=== PATIENT | male | born 1960 | race Two or more races ===

== ENCOUNTER 2025-06-15 21:28 | Inpatient (IN) | payer MEDICARE ==
[~2025-06-15] VITALS: Ht 177.8 cm; Wt 47.6 kg
[~2025-06-15 21:28] MED LIST: CHLO25CA10 PO; CITA10TA16 MT; FOLI-43 MT; MECL-217 PO; MULT-1146 MT; QUET25TA PO; THIA100T88 MT; VIT1TABL77 MT
[2025-06-15 21:33] VITALS: O2SAT 97
[2025-06-15] MEDS ORDERED: LIDOCAINE HCL/EPINEPHRINE 1%-EPI 1:100,000 10ML VIAL INFIL ONE (22:45)
[2025-06-15 23:24] LABS: CREATININE 0.6 mg/dL (0.6-1.3); UREA NITROGEN BLOOD 5 mg/dL (9-23)
[2025-06-15 23:47] LABS: BASOPHILS % 1.0 % (0.0-2.0); EOSINOPHILS % 1.9 % (0.0-5.0); HEMATOCRIT. 35.6 % (42.0-52.0); HEMOGLOBIN. 12.1 g/dL (14.0-18.0); LYMPHOCYTES % 47.5 % (20.0-50.0); MEAN PLATELET VOLUME 8.3 fl (7.4-10.4); MONOCYTES % 10.8 % (2.0-8.0); NEUTROPHILS % 38.8 % (40.0-76.0); PLATELET 213 x1000/uL (130-400); RED BLOOD CELL COUNT 3.27 mill/uL (4.7-6.1); RED CELL DISTRIBUTION WIDTH 17.6 % (11.6-14.6)
[2025-06-15] MEDS: LIDOCAINE HCL/EPINEPHRINE 1%-EPI 1:100,000 20ML VIAL INFIL NR (23:57)
[2025-06-16] MEDS: POTASSIUM CHLORIDE 20MEQ/PACKET PO ONE (01:53)
[2025-06-16 02:20] VITALS: BP 129/83; PULSE 89; RESP 16; TEMP 36.8072
[2025-06-16 08:00] VITALS: BP 134/74; PULSE 79; RESP 18; TEMP 37.2; O2SAT 100
[2025-06-16] MEDS ORDERED: ONDANSETRON HCL 4MG/2ML INJ IV PRN (08:00)
[2025-06-16] MEDS ORDERED: HYDROCODONE/ACETAMINOPHEN 5/325MG TABLET PO PRN (08:00)
[2025-06-16] MEDS ORDERED: MAGNESIUM/ALUMINUM HYDROXIDE/SIMETHICONE 30ML UDC PO PRN (08:00)
[2025-06-16] MEDS ORDERED: ENOXAPARIN 40MG/0.4ML SYR SUBCUT SCH (08:00)
[2025-06-16] MEDS: PANTOPRAZOLE SODIUM 40 MG/VIAL IV SCH (09:29)
[2025-06-16] MEDS: ENOXAPARIN 30MG/0.3ML SYR SUBCUT SCH (09:29)
[2025-06-16] MEDS: SODIUM CHLORIDE 0.9% 1,000 ML IV SCH (09:30)
[2025-06-16] MEDS: MVI, ADULT NO.1 10 ML, FOLIC ACID 1 MG, THIAMINE HCL 100 MG in SODIUM CHLORIDE 0.9% 1,0... IV SCH (10:35)
[2025-06-16 12:00] VITALS: BP 122/74; PULSE 99; RESP 18; TEMP 36.7; O2SAT 100
[2025-06-16] MEDS ORDERED: NALOXONE HCL 0.4MG/ML VIAL IV PRN (14:15)
[2025-06-16] MEDS: CHLORDIAZEPOXIDE 25MG CAPSULE PO SCH (15:21)
[2025-06-16 16:00] VITALS: BP 127/70; PULSE 75; RESP 18; TEMP 36.6; O2SAT 97
[2025-06-16 20:00] VITALS: BP 129/70; PULSE 75; RESP 18; TEMP 36.4; O2SAT 100
[2025-06-17] VITALS: BP 108/65; PULSE 79; RESP 18; TEMP 36.4; O2SAT 100
[2025-06-17 04:00] VITALS: BP 137/85; PULSE 70; RESP 18; TEMP 36.4; O2SAT 100
[2025-06-17 07:20] LABS: BASOPHILS % 0.4 % (0.0-2.0); EOSINOPHILS % 1.6 % (0.0-5.0); HEMATOCRIT. 37.8 % (42.0-52.0); HEMOGLOBIN. 12.9 g/dL (14.0-18.0); LYMPHOCYTES % 37.3 % (20.0-50.0); MEAN PLATELET VOLUME 9.1 fl (7.4-10.4); MONOCYTES % 8.3 % (2.0-8.0); NEUTROPHILS % 52.4 % (40.0-76.0); PLATELET 166 x1000/uL (130-400); RED BLOOD CELL COUNT 3.46 mill/uL (4.7-6.1); RED CELL DISTRIBUTION WIDTH 16.7 % (11.6-14.6)
[2025-06-17 07:36] LABS: CREATININE 0.5 mg/dL (0.6-1.3)
[2025-06-17 07:37] LABS: UREA NITROGEN BLOOD < 5 mg/dL (9-23)
[2025-06-17 07:38] LABS: ASPARTATE AMINOTRANSFERASE 46 IU/L (<34)
[2025-06-17 07:39] LABS: BILIRUBIN TOTAL 1.5 mg/dL (0.1-1.0); PHOSPHORUS 1.7 mg/dL (2.5-4.9); PROTEIN TOTAL 6.3 g/dL (6.0-8.3)
[2025-06-17 08:00] VITALS: BP 136/80; PULSE 67; RESP 18; TEMP 36.4; O2SAT 98
[2025-06-17] MEDS: POTASSIUM CHLORIDE 20MEQ TABLET SR PO SCH (10:09)
[2025-06-17] MEDS: KCL 10MEQ/50ML PREMIX 50 ML IV SCH (10:09)
[2025-06-17 12:00] VITALS: BP 139/79; PULSE 65; RESP 17; TEMP 36.4; O2SAT 98
[2025-06-17] MEDS: MAGNESIUM 2 G PREMIX 50 ML IV SCH (12:22)
[2025-06-17 16:00] VITALS: BP 13/76; PULSE 68; RESP 18; TEMP 36.4; O2SAT 98
[2025-06-18] VITALS: BP 148/92; PULSE 109; RESP 20; TEMP 36.7; O2SAT 97
[2025-06-18 04:00] VITALS: BP 134/92; PULSE 99; RESP 19; TEMP 36.3; O2SAT 96
[2025-06-18 08:00] VITALS: BP 153/90; PULSE 72; RESP 17; TEMP 36.6; O2SAT 100
[2025-06-18] MEDS: FAMOTIDINE 20MG/2ML VIAL IV SCH (09:00)
[2025-06-18 09:56] LABS: BASOPHILS % 0.3 % (0.0-2.0); EOSINOPHILS % 2.5 % (0.0-5.0); HEMATOCRIT. 37.0 % (42.0-52.0); HEMOGLOBIN. 12.4 g/dL (14.0-18.0); LYMPHOCYTES % 29.9 % (20.0-50.0); MEAN PLATELET VOLUME 9.4 fl (7.4-10.4); MONOCYTES % 7.5 % (2.0-8.0); NEUTROPHILS % 59.8 % (40.0-76.0); PLATELET 159 x1000/uL (130-400); RED BLOOD CELL COUNT 3.33 mill/uL (4.7-6.1); RED CELL DISTRIBUTION WIDTH 17.0 % (11.6-14.6)
[2025-06-18 10:01] LABS: ADD RBC MORPHOLOGY YES
[2025-06-18 10:07] LABS: CREATININE 0.6 mg/dL (0.6-1.3)
[2025-06-18 10:08] LABS: UREA NITROGEN BLOOD < 5 mg/dL (9-23)
[2025-06-18 10:09] LABS: ASPARTATE AMINOTRANSFERASE 63 IU/L (<34)
[2025-06-18 10:10] LABS: BILIRUBIN TOTAL 1.3 mg/dL (0.1-1.0); PROTEIN TOTAL 6.4 g/dL (6.0-8.3)
[2025-06-18 12:00] VITALS: BP 158/89; PULSE 77; RESP 17; TEMP 36.3; O2SAT 100
[2025-06-18] MEDS: MAGNESIUM 1 G PREMIX 100 ML IV NR (12:28)
[2025-06-18] MEDS: KCL 10MEQ/50ML PREMIX 50 ML IV SCH (13:00)
[2025-06-18 16:00] VITALS: BP 127/83; PULSE 71; RESP 17; TEMP 36.1; O2SAT 99
[2025-06-18 17:01] LABS: PLATELET ESTIMATE NORMAL
[2025-06-18 20:00] VITALS: BP 136/76; PULSE 70; RESP 18; TEMP 36.7; O2SAT 77
[2025-06-18] MEDS: LORAZEPAM 2MG/ML UD SYRINGE IV PRN (22:04)
[2025-06-19 08:00] VITALS: BP 134/80; PULSE 73; RESP 18; TEMP 35.9; O2SAT 95
[2025-06-19 12:00] VITALS: BP 128/75; PULSE 77; RESP 18; TEMP 36.3; O2SAT 98
[2025-06-19 16:00] VITALS: PULSE 65; RESP 18; TEMP 35.7; O2SAT 97
[2025-06-19 18:09] LABS: BASOPHILS % 0.4 % (0.0-2.0); EOSINOPHILS % 4.6 % (0.0-5.0); HEMATOCRIT. 39.1 % (42.0-52.0); HEMOGLOBIN. 12.8 g/dL (14.0-18.0); LYMPHOCYTES % 31.7 % (20.0-50.0); MEAN PLATELET VOLUME 9.5 fl (7.4-10.4); MONOCYTES % 9.0 % (2.0-8.0); NEUTROPHILS % 54.3 % (40.0-76.0); PLATELET 156 x1000/uL (130-400); RED BLOOD CELL COUNT 3.45 mill/uL (4.7-6.1); RED CELL DISTRIBUTION WIDTH 16.8 % (11.6-14.6)
[2025-06-19 18:30] LABS: CREATININE 0.6 mg/dL (0.6-1.3)
[2025-06-19 18:31] LABS: CREATININE 0.6 mg/dL (0.6-1.3); UREA NITROGEN BLOOD 6 mg/dL (9-23)
[2025-06-19 18:32] LABS: ASPARTATE AMINOTRANSFERASE 124 IU/L (<34); UREA NITROGEN BLOOD 6 mg/dL (9-23)
[2025-06-19 18:33] LABS: BILIRUBIN TOTAL 1.2 mg/dL (0.1-1.0); PROTEIN TOTAL 6.6 g/dL (6.0-8.3)
[2025-06-19 20:00] VITALS: BP 133/81; PULSE 80; RESP 18; TEMP 36.7; O2SAT 99
[2025-06-19] MEDS: THIAMINE HCL 100MG TABLET PO SCH (21:13)
[2025-06-19] MEDS: POTASSIUM CHLORIDE 20MEQ TABLET SR PO SCH (21:14)
[2025-06-19] MEDS: FOLIC ACID/VITAMIN B COMP W-C TABLET PO SCH (21:15)
[2025-06-19] MEDS: MAGNESIUM 1 G PREMIX 100 ML IV SCH (21:30)
[2025-06-20] VITALS: BP 128/80; PULSE 77; RESP 18; TEMP 36.9; O2SAT 99
[2025-06-20] MEDS: ZOLPIDEM TARTRATE 5MG TABLET PO PRN (03:31)
[2025-06-20 04:00] VITALS: BP 125/79; PULSE 72; RESP 14; TEMP 36.7; O2SAT 99
[2025-06-20 05:50] LABS: CREATININE 0.6 mg/dL (0.6-1.3); UREA NITROGEN BLOOD 8 mg/dL (9-23)
[2025-06-20] MEDS: NICOTINE 14MG PATCH TD SCH (09:45)
[2025-06-20 12:00] VITALS: BP 132/86; PULSE 87; RESP 17; TEMP 36.3; O2SAT 99
[2025-06-20 12:26] VITALS: BP 147/81; PULSE 103; RESP 18; TEMP 35.8; O2SAT 100
[2025-06-20] MEDS: CHLORDIAZEPOXIDE 25MG CAPSULE PO SCH (14:06)
[2025-06-20 16:00] VITALS: BP 101/63; PULSE 74; RESP 17; TEMP 35.9; O2SAT 98
[2025-06-20 20:00] VITALS: BP 142/92; PULSE 82; RESP 18; TEMP 36.4; O2SAT 100
[2025-06-21] VITALS: BP 144/122; PULSE 82; RESP 18; TEMP 36.4; O2SAT 100
[2025-06-21 04:00] VITALS: BP 159/101; PULSE 83; RESP 18; TEMP 36.4; O2SAT 95
[2025-06-21] MEDS: CLONIDINE 0.1MG TABLET PO PRN (05:21)
[2025-06-21 08:00] VITALS: BP 126/74; PULSE 88; RESP 17; TEMP 36.4; O2SAT 99
[2025-06-21 12:00] VITALS: BP 115/72; PULSE 83; RESP 17; TEMP 36.2; O2SAT 99
[2025-06-21 16:00] VITALS: BP 119/83; PULSE 91; RESP 17; TEMP 36.3; O2SAT 100
[2025-06-21 20:00] VITALS: BP 148/80; PULSE 78; RESP 16; TEMP 36.9; O2SAT 98
[2025-06-22] VITALS: BP 144/79; PULSE 80; RESP 16; TEMP 36.9; O2SAT 98
[2025-06-22 04:00] VITALS: BP 151/86; PULSE 69; RESP 18; TEMP 36.7; O2SAT 98
[2025-06-22 08:00] VITALS: BP 165/85; PULSE 80; RESP 19; TEMP 36.5; O2SAT 95
[2025-06-22] MEDS: CITALOPRAM HYDROBROMIDE 10MG TABLET PO SCH (10:31)
[2025-06-22 12:00] VITALS: BP 128/71; PULSE 66; RESP 16; TEMP 36.3; O2SAT 96
[2025-06-22 16:00] VITALS: BP 123/87; PULSE 70; RESP 17; TEMP 36.4; O2SAT 99
[2025-06-22 20:00] VITALS: BP 123/65; PULSE 69; RESP 19; TEMP 37; O2SAT 96
[2025-06-22] MEDS ORDERED: NALOXONE HCL 0.4MG/ML VIAL IV PRN (20:00)
[2025-06-22] MEDS: QUETIAPINE FUMARATE 25MG TABLET PO SCH (20:24)
[2025-06-22] MEDS: HYDROCODONE/ACETAMINOPHEN 5/325MG TABLET PO PRN (20:25)
[2025-06-23 04:00] VITALS: BP 141/74; PULSE 71; RESP 19; TEMP 36.2; O2SAT 96
[2025-06-23 08:00] VITALS: BP 141/75; PULSE 74; RESP 17; TEMP 35.7; O2SAT 99
[2025-06-23 12:00] VITALS: BP 115/71; PULSE 94; RESP 18; TEMP 36.4; O2SAT 100
[2025-06-23 16:00] VITALS: BP 118/65; PULSE 55; RESP 15; TEMP 35.6; O2SAT 100
[2025-06-23 20:00] VITALS: BP 123/71; PULSE 81; RESP 18; TEMP 36.4; O2SAT 96
[2025-06-24] VITALS: BP 134/87; PULSE 74; RESP 18; TEMP 36.7; O2SAT 97
[2025-06-24 04:00] VITALS: BP 144/75; PULSE 78; RESP 18; TEMP 36.5; O2SAT 100
[2025-06-24 08:00] VITALS: BP 140/79; PULSE 73; RESP 18; TEMP 36.3; O2SAT 100
[2025-06-24 12:00] VITALS: BP 145/77; PULSE 77; RESP 18; TEMP 36.3; O2SAT 100
[2025-06-24 16:00] VITALS: BP 148/81; PULSE 79; RESP 19; TEMP 36.4; O2SAT 98
[2025-06-24] MEDS ORDERED: THIA100T72 PO (16:04)
[2025-06-24 20:00] VITALS: BP 164/71; PULSE 83; RESP 20; TEMP 36.7; O2SAT 96
[2025-06-25] VITALS: BP 176/90; PULSE 99; RESP 17; TEMP 36.3; O2SAT 99
[2025-06-25 08:00] VITALS: BP 175/99; PULSE 89; RESP 18; TEMP 36.4; O2SAT 100
[2025-06-25 12:00] VITALS: BP 163/88; PULSE 94; RESP 18; TEMP 36.6; O2SAT 100
[2025-06-25 16:00] VITALS: BP 149/76; PULSE 88; RESP 20; TEMP 36.8; O2SAT 100
[2025-06-25 20:00] VITALS: BP 162/84; PULSE 72; RESP 20; TEMP 37.2; O2SAT 100
[2025-06-25 20:54] VITALS: BP 125/82
[2025-06-25] MEDS: QUETIAPINE FUMARATE 50MG TABLET PO SCH (20:55)
[2025-06-26] VITALS: BP 154/100; PULSE 98; RESP 20; TEMP 35.9; O2SAT 100
[2025-06-26 04:00] VITALS: BP 171/101; PULSE 114; RESP 20; TEMP 36; O2SAT 97
[2025-06-26 08:00] VITALS: BP 155/107; PULSE 95; RESP 18; TEMP 36.2; O2SAT 99
[2025-06-26 12:00] VITALS: BP 140/84; PULSE 73; RESP 18; TEMP 36.3; O2SAT 100
[2025-06-26 16:00] VITALS: BP 155/74; PULSE 93; RESP 20; TEMP 36.3; O2SAT 98
[2025-06-26 20:00] VITALS: BP 145/85; PULSE 73; RESP 17; TEMP 36.5; O2SAT 100
[2025-06-27] VITALS: BP 157/92; PULSE 105; RESP 16; TEMP 36.3; O2SAT 99
[2025-06-27 04:00] VITALS: BP 157/92; PULSE 86; RESP 17; TEMP 36.4; O2SAT 98
[2025-06-27 08:00] VITALS: BP 147/95; PULSE 73; RESP 20; TEMP 36.2; O2SAT 99
[2025-06-27 12:00] VITALS: BP 115/71; PULSE 86; RESP 20; TEMP 36.3; O2SAT 99
[2025-06-27] MEDS: FOLIC ACID 1 MG, THIAMINE HCL 100 MG, MVI, ADULT NO.1 10 ML in DEXTROSE 5% WATER 1,000 ML IV ONE (13:59)
[2025-06-27] MEDS: CHLORDIAZEPOXIDE 25MG CAPSULE PO SCH (13:59)
[2025-06-27 16:00] VITALS: BP 135/87; PULSE 71; RESP 20; TEMP 36.4; O2SAT 99
[2025-06-27 20:00] VITALS: BP 162/92; PULSE 72; RESP 18; TEMP 36.4; O2SAT 100
[2025-06-28] VITALS: BP 148/85; PULSE 80; RESP 18; TEMP 36.4; O2SAT 100
[2025-06-28 04:00] VITALS: BP 150/89; PULSE 70; RESP 18; TEMP 36.4; O2SAT 100
[2025-06-28 08:00] VITALS: BP 150/82; PULSE 68; RESP 16; TEMP 36.3; O2SAT 100
[2025-06-28 12:00] VITALS: BP 135/71; PULSE 74; RESP 18; TEMP 36.4; O2SAT 100
[2025-06-28 16:00] VITALS: BP 146/85; PULSE 63; RESP 17; TEMP 36.1; O2SAT 100
[2025-06-28 20:00] VITALS: BP 147/86; PULSE 64; RESP 18; TEMP 36; O2SAT 99
[2025-06-29] VITALS: BP 91/59; PULSE 63; RESP 12; TEMP 36.2; O2SAT 100
[2025-06-29 04:00] VITALS: BP 133/88; PULSE 74; RESP 18; TEMP 36.4; O2SAT 98
[2025-06-29] MEDS: CARBIDOPA/LEVODOPA 10/100MG TABLET PO SCH (06:23)
[2025-06-29 08:00] VITALS: BP 105/75; PULSE 80; RESP 20; TEMP 36.6; O2SAT 100
[2025-06-29 08:08] LABS: BASOPHILS % 1.3 % (0.0-2.0); EOSINOPHILS % 1.6 % (0.0-5.0); HEMATOCRIT. 36.9 % (42.0-52.0); HEMOGLOBIN. 12.5 g/dL (14.0-18.0); LYMPHOCYTES % 31.0 % (20.0-50.0); MEAN PLATELET VOLUME 8.5 fl (7.4-10.4); MONOCYTES % 9.8 % (2.0-8.0); NEUTROPHILS % 56.3 % (40.0-76.0); PLATELET 516 x1000/uL (130-400); RED BLOOD CELL COUNT 3.38 mill/uL (4.7-6.1); RED CELL DISTRIBUTION WIDTH 15.8 % (11.6-14.6)
[2025-06-29 08:15] LABS: CREATININE 0.7 mg/dL (0.6-1.3); UREA NITROGEN BLOOD 13 mg/dL (9-23)
[2025-06-29 08:17] LABS: ASPARTATE AMINOTRANSFERASE 78 IU/L (<34); BILIRUBIN DIRECT 0.2 mg/dL (<=3.0); BILIRUBIN TOTAL 0.5 mg/dL (0.1-1.0); PHOSPHORUS 3.7 mg/dL (2.5-4.9); PROTEIN TOTAL 6.8 g/dL (6.0-8.3)
[2025-06-29 12:00] VITALS: BP 106/62; PULSE 68; RESP 16; TEMP 36.2; O2SAT 100
[2025-06-29 16:00] VITALS: BP 119/69; PULSE 68; RESP 18; TEMP 36.3; O2SAT 100
[2025-06-29 20:00] VITALS: BP 122/70; PULSE 73; RESP 18; TEMP 36.6; O2SAT 100
[2025-06-30] VITALS: BP 131/80; PULSE 64; RESP 18; TEMP 36.5; O2SAT 100
[2025-06-30 04:00] VITALS: BP 139/79; PULSE 74; RESP 18; TEMP 36.4; O2SAT 100
[2025-06-30 08:00] VITALS: BP 164/95; PULSE 83; RESP 18; TEMP 36.8; O2SAT 96
[2025-06-30 12:00] VITALS: BP 146/81; PULSE 90; RESP 19; TEMP 37.1; O2SAT 99
[2025-06-30 16:00] VITALS: BP 142/85; PULSE 82; RESP 18; TEMP 35.7; O2SAT 99
[2025-06-30 20:00] VITALS: BP 137/84; PULSE 65; RESP 18; TEMP 36.6; O2SAT 99
[2025-07-01] VITALS: BP 149/78; PULSE 75; RESP 18; TEMP 36.1; O2SAT 100
[2025-07-01 04:00] VITALS: BP 113/44; PULSE 77; RESP 18; TEMP 36.6; O2SAT 98
[2025-07-01 08:00] VITALS: BP 142/73; PULSE 67; RESP 18; TEMP 36.4; O2SAT 98
[2025-07-01 12:00] VITALS: PULSE 75; RESP 18; TEMP 36.6; O2SAT 99
[2025-07-01 16:00] VITALS: BP 127/72; PULSE 78; RESP 18; TEMP 36.2; O2SAT 98
[2025-07-01] MEDS: ACETAMINOPHEN 325MG TABLET PO PRN (16:12)
[2025-07-01 20:00] VITALS: BP 167/47; PULSE 58; RESP 18; TEMP 36.4; O2SAT 97
[2025-07-02] VITALS: BP 126/78; PULSE 70; RESP 18; TEMP 36.4; O2SAT 98
[2025-07-02 06:49] LABS: CREATININE 0.8 mg/dL (0.6-1.3)
[2025-07-02 06:50] LABS: UREA NITROGEN BLOOD 6 mg/dL (9-23)
[2025-07-02 06:51] LABS: ASPARTATE AMINOTRANSFERASE 56 IU/L (<34)
[2025-07-02 06:52] LABS: BILIRUBIN TOTAL 0.5 mg/dL (0.1-1.0); PROTEIN TOTAL 7.2 g/dL (6.0-8.3)
[2025-07-02 08:00] VITALS: BP 156/88; PULSE 68; RESP 16; TEMP 36.2; O2SAT 98
[2025-07-02 12:00] VITALS: BP 136/85; PULSE 62; RESP 19; TEMP 36.4; O2SAT 100
[2025-07-02 16:00] VITALS: BP 140/86; PULSE 90; RESP 20; TEMP 36.5; O2SAT 98
[2025-07-02 17:36] LABS: BASOPHILS % 1.2 % (0.0-2.0); EOSINOPHILS % 2.2 % (0.0-5.0); HEMATOCRIT. 36.5 % (42.0-52.0); HEMOGLOBIN. 12.6 g/dL (14.0-18.0); LYMPHOCYTES % 27.2 % (20.0-50.0); MEAN PLATELET VOLUME 8.2 fl (7.4-10.4); MONOCYTES % 11.0 % (2.0-8.0); NEUTROPHILS % 58.4 % (40.0-76.0); PLATELET 524 x1000/uL (130-400); RED BLOOD CELL COUNT 3.38 mill/uL (4.7-6.1); RED CELL DISTRIBUTION WIDTH 15.3 % (11.6-14.6)
[2025-07-02 20:00] VITALS: BP 124/84; PULSE 79; RESP 19; TEMP 35.9; O2SAT 98
[2025-07-03] VITALS: BP 143/86; PULSE 67; RESP 19; TEMP 35.8; O2SAT 97
[2025-07-03 04:00] VITALS: BP 160/100; PULSE 63; RESP 19; TEMP 36.2; O2SAT 97
[2025-07-03 08:00] VITALS: BP 150/82; PULSE 68; RESP 17; TEMP 35.6; O2SAT 100
[2025-07-03 12:00] VITALS: BP 135/72; PULSE 70; RESP 17; TEMP 36.4; O2SAT 100
[2025-07-03 15:19] VITALS: BP 135/72; PULSE 70; RESP 17; TEMP 97.5
== END 2025-07-03 16:26 | DRG 124 ==
LOC: ER 21:28 → EDBEDREQTM 06-16 01:24 → EDBEDREQ 06-16 01:24 → ENRESERV 06-16 01:52 → 7EST 06-16 03:28
PROVIDERS: ADMIT Internal Medicine; ATTEND Internal Medicine
PROC: 0HQ1XZZ Repair Face Skin, External Approach (ICD-10-PCS; principal; 2025-06-15)
PROC: GZ56ZZZ Individual Psychotherapy, Supportive (ICD-10-PCS; 2025-06-24)
DX: S01.111A Laceration without foreign body of right eyelid and periocular area, initial encounter (principal); G93.41 Metabolic encephalopathy; F10.939 Alcohol use, unspecified with withdrawal, unspecified; I10 Essential (primary) hypertension; M47.892 Other spondylosis, cervical region; W08.XXXA Fall from other furniture, initial encounter; D53.9 Nutritional anemia, unspecified; E87.6 Hypokalemia; F17.210 Nicotine dependence, cigarettes, uncomplicated; F32.A Depression, unspecified; F41.9 Anxiety disorder, unspecified; F20.9 Schizophrenia, unspecified; Y90.8 Blood alcohol level of 240 mg/100 ml or more; F10.929 Alcohol use, unspecified with intoxication, unspecified; Z79.899 Other long term (current) drug therapy; Y93.89 Activity, other specified; Y92.89 Other specified places as the place of occurrence of the external cause; Z86.73 Personal history of transient ischemic attack (TIA), and cerebral infarction without residual deficits; Z88.0 Allergy status to penicillin
CPT/HCPCS: 12013; 36415; 70486; 73521; 80048; 80053; 80076; 80320; 82140; 83735; 84100; 84443; 85025; 93970; 97116; 97162; 97530; 99285; A4565; A4606; J1308; J1650; J2004; J2060; J2470; J3411; J3475; J3480; J3490; J7030; J7070; G0480